=== PATIENT | male | born 1960 | race Caucasian/White ===

== ENCOUNTER 2016-07-19 17:55 | Emergency (ER) | payer BC ==
[~2016-07-19] VITALS: Ht 182.9 cm; Wt 108.0 kg
[2016-07-19] MEDS ORDERED: ONDANSETRON 2 MG/ML (Z0FRAN) 2 ML VIAL IV ONE (18:25)
[2016-07-19] MEDS ORDERED: SODIUM CHLORIDE FLUSH 3 ML SYR IV PRN (18:30)
[2016-07-19] MEDS ORDERED: SODIUM CHLORIDE FLUSH 10 ML SYR IV PRN (18:30)
[2016-07-19 19:02] LABS: BASOPHILS % (AUTO) 0 % (0-2); EOSINOPHILS % (AUTO) 0 % (0-4); MEAN CORPUSCULAR HEMOGLOBIN 30.4 PG (26.0-34.0); MEAN CORPUSCULAR VOLUME 80 FL (80-100); MEAN PLATELET VOLUME 10.7 FL (6.0-9.5); MONOCYTES # (AUTO) 1.2 X10^3; MONOCYTES % (AUTO) 9 % (3-11); NEUTROPHILS # (AUTO) 12.1 X10^3; NEUTROPHILS % (AUTO) 84 % (51-67); PLATELET COUNT 193 10^3uL (150-450); WHITE BLOOD COUNT 14.49 10^3uL (4.0-11.0)
[2016-07-19 19:09] LABS: MEAN CORPUSCULAR HGB CONC 38.2 g/dL (31.0-37.0)
[2016-07-19] MEDS ORDERED: KETOROLAC 30 MG/ML (TORADOL) 1 ML VIAL IV ONE (19:10)
[2016-07-19 19:12] LABS: ALBUMIN 4.2 g/dL (3.4-5.0); ANION GAP 17.2 MEQ/L (3-15); CALCULATED IONIZED CALCIUM 3.7 mg/dL (3.8-4.6); TOTAL PROTEIN 8.2 g/dL (6.4-8.5)
[2016-07-19 19:26] LABS: INFLUENZA VIRUS TYPE A ANTIBOD Positive (NEGATIVE); INFLUENZA VIRUS TYPE B ANTIBOD Negative (NEGATIVE)
[2016-07-19] MEDS ORDERED: ED- ONDANSETRON ODT 4 MG (ZOFRAN) 4 TABLETS/BTL PO ONE (20:30)
--- NOTE | 2016-07-19 22:03 | NUR ---
Patient dismissed by Marcy Quick RN.
[2016-07-19 23:31] VITALS: BP 140/100
== END 2016-07-19 22:03 | disposition home or self-care (01) ==
LOC: ED 17:57
DX: J11.1 Influenza due to unidentified influenza virus with other respiratory manifestations (principal); R50.81 Fever presenting with conditions classified elsewhere
CPT/HCPCS: 36415; 80053; 85025; 86140; 87502; 96361; 96374; 96375; 99283; J1885; J2405; J7030